=== PATIENT | female | born 1995 | race Asian ===

== ENCOUNTER 2022-03-02 22:04 | Emergency (ER) | payer BC, SELFPAY ==
[2022-03-02 23:13] VITALS: BP 137/91; PULSE 92; RESP 16; TEMP 36.2; O2SAT 98; BMI 31.5
[2022-03-03] VITALS (9 sets, daily range): BP systolic 116–135; BP diastolic 77–99; PULSE 75–92; RESP 16; O2SAT 95–98
--- NOTE | 2022-03-03 00:25 | ED.CHESTPAIN ---
HPI - Chest Pain General Chief Complaint: Chest Pain Stated Complaint: pressure in chest Time Seen by Provider: 03/03/22 00:17 History of Present Illness HPI narrative: 27-year-old young woman with history of high blood pressure presents to the emergency department with her mother. She is adopted and does not know her family medical history. After shower this evening was preparing help her dad and started to feel some pain in her upper back and left chest area spread up to her shoulders and then felt subsequently was feeling tingly in both hands. She does not describe hyperventilating. Pain was worse with a deep breath. It does seem to get worse over the course of the evening now. Pain extended from the left trapezial area down into at least her left upper arm. The numb and tingling sensation in her hands though is improving. Later describing how she has episodes of lightheadedness and dizziness occurring sometimes with movement and sometimes at rest the last month. Apparently has discussed this with Primary Care. Sounds like there was some question by clinic provider after evaluation of blood pressure, whether not might be glucose levels. Does have a history of dizziness associated with migraines per her report ADHD, oligomenorrhea, exercise-induced asthma, grief reaction.? Suicidal ideation Hypertension History of vertigo Past surgical history:? Appendectomy, D and C, cholecystectomy for acalculous cholecystitis/biliary dyskinesia, removal of a neck cyst. Related Data Home Medications Medication Instructions Recorded Confirmed hydrochlorothiazide 25 mg tablet mg 03/02/22 Allergies Allergy/AdvReac Type Severity Reaction Status Date / Time atomoxetine [From Strattera] AdvReac Verified 03/02/22 23:17 red food coloring Allergy Uncoded 03/02/22 23:18 Review of Systems Status of ROS Reports: 10 or more systems reviewed and unremarkable except as noted in History and below [facility] Social History Smoking Status: Never smoker How often do you have a drink containing alcohol: never AUDIT-C Alcohol total score: 0 Non-prescribed substance use: denies use Exam Narrative Exam Narrative: pleasant, nad. breathing easily. cn 2 - 12 intact. head atraumatic neck supple with full rom Tattoo at left upper chest. Sore to palpation in this area and into upper rhomboid/trapezius of the shoulder area. Good range of motion with both arms, skin warm and well perfused peripherally with equal pulses. subjectively a little unusual sensation in left upper arm. no evelin loss of sensation. good strength throughout. no peripheral edema. cv with mildly elevated rate, reg rhythm, no mrg. lungs are clear Const Vital Signs, click to edit/add: Vital Signs - 24 hr 03/02/22 23:13 03/03/22 01:20 03/03/22 01:40 Temperature 97.2 F L Pulse Rate [Left Pulse Oximeter] 92 80 88 Respiratory Rate 16 16 16 Blood Pressure [Right Upper Arm] 137/91 H 135/99 H 125/81 Pulse Oximetry 98 96 96 Oxygen Delivery Method Room Air Room Air 03/03/22 02:00 03/03/22 03:00 03/03/22 03:20 Temperature Pulse Rate [Left Pulse Oximeter] 88 80 92 Respiratory Rate 16 16 16 Blood Pressure [Right Upper Arm] 116/77 134/99 H 123/83 Pulse Oximetry 95 97 98 Oxygen Delivery Method Room Air Room Air Room Air 03/03/22 03:40 03/03/22 04:00 03/03/22 04:40 Temperature Pulse Rate [Left Pulse Oximeter] 81 75 79 Respiratory Rate 16 16 16 Blood Pressure [Right Upper Arm] 126/89 117/82 125/88 Pulse Oximetry 95 97 98 Oxygen Delivery Method Room Air Room Air Room Air 03/03/22 05:20 Temperature Pulse Rate [Left Pulse Oximeter] 81 Respiratory Rate 16 Blood Pressure [Right Upper Arm] 124/90 H Pulse Oximetry 96 Oxygen Delivery Method Room Air Documenting provider has reviewed patient's vital signs: yes Course Course Hospital Course: cardiac and oximetry monitoring ultimately without event. Reevaluation(s) Reevaluation #1: After fluids and ketorolac pain still present she calmly explains. Ultimately would like further medication for pain but again prefers no opiates. We settle on ketamine infusion. This apparently adds to sense of dizziness and subsequently a little nauseated. Treated with Zofran. Overall improved and requesting departure. Vital Signs Vital signs: Initial Vital Signs Temperature 97.2 F L 03/02/22 23:13 Temperature Source Temporal Artery Scan 03/02/22 23:13 Pulse Rate 92 03/02/22 23:13 Respiratory Rate 16 03/02/22 23:13 Blood Pressure 137/91 H 03/02/22 23:13 Blood Pressure Mean 106 03/02/22 23:13 Blood Pressure Position Sitting 03/02/22 23:13 Pulse Oximetry 98 03/02/22 23:13 Vital Signs Temperature 97.2 F L 03/02/22 23:13 Pulse Rate 92 03/02/22 23:13 Respiratory Rate 16 03/02/22 23:13 Blood Pressure 137/91 H 03/02/22 23:13 Pulse Oximetry 98 03/02/22 23:13 Temperature 97.2 F L 03/02/22 23:13 Pulse Rate 81 03/03/22 05:20 Respiratory Rate 16 03/03/22 05:20 Blood Pressure 124/90 H 03/03/22 05:20 Pulse Oximetry 96 03/03/22 05:20 Oxygen Delivery Method 03/03/22 05:20 MDM - Chest Pain MDM Narrative Medical decision making narrative: personally reviewed chest xray to be wnl. still with pain, unusual presentation, pleuritic pain and elev d-dimer sent to iv con ct chest. reviewed these images also radiology overread notes nothing but fatty liver. labs with sl elev wbc and mild elev d-dimer. discomfort is somewhat reproducible likely chest wall pain, costochondritis? with muscle tension/spasm. Medical Records Data Medical records narrative: not available to me Lab Data Attestation: I reviewed the patient's lab results. Labs: Lab Results 03/03/22 03/03/22 03/03/22 Range/Units 00:49 00:49 00:49 WBC 11.76 H (4.50-11.00) K/uL RBC 4.56 (4.00-5.20) m/uL Hgb 14.1 (12.0-16.0) gm/dL Hct 40.2 (33.0-51.0) % MCV 88 (80-100) fL MCH 31 (26-34) pg MCHC 35 (32-36) gm/dL RDW Coeff of Meka 11.2 L (11.5-15.5) % Plt Count 365 (140-440) K/uL Neut % (Auto) 59.9 (42.0-72.0) % Lymph % (Auto) 30.5 (20-44) % Sanborn % (Auto) 6.7 (0.0-11.0) % Eos % (Auto) 1.6 (0.0-7.0) % Baso % (Auto) 0.4 (0.0-3.0) % Neut # (Auto) 7.00 (1.7-7.0) K/uL Lymph # (Auto) 3.60 H (0.90-2.90) K/uL Sanborn # (Auto) 0.80 (0.00-0.90) K/UL Eos # (Auto) 0.20 (0.00-0.50) K/uL Baso # (Auto) 0.00 (0.00-0.30) K/uL Abs Immat Gran (auto) 0.10 (0.00-0.30) K/uL D-Dimer Quant (PE/DVT) 0.89 H (0.00-0.50) ug/ml Sodium 139 (135-149) mmol/L Potassium 3.7 (3.6-5.1) mmol/L Chloride 103 (96-114) mmol/L Carbon Dioxide 26 (20-32) mmol/L BUN 14 (5-24) mg/dL Creatinine 0.5 (0.5-1.5) mg/dL Estimated Creat Clear 131.30 Estimated GFR 130 ml/min Glucose 106 (60-115) mg/dL Calcium 9.4 (8.4-10.6) mg/dL Troponin I < 0.01 L (0.01-0.04) ng/mL C-Reactive Protein < 0.5 L (0.5-1.0) mg/dL NT-Pro-B Natriuret Pep 24 (0-125) PG/mL POC Troponin I (0.01-0.04) ng/ml 03/03/22 Range/Units 00:49 WBC (4.50-11.00) K/uL RBC (4.00-5.20) m/uL Hgb (12.0-16.0) gm/dL Hct (33.0-51.0) % MCV (80-100) fL MCH (26-34) pg MCHC (32-36) gm/dL RDW Coeff of Meka (11.5-15.5) % Plt Count (140-440) K/uL Neut % (Auto) (42.0-72.0) % Lymph % (Auto) (20-44) % Sanborn % (Auto) (0.0-11.0) % Eos % (Auto) (0.0-7.0) % Baso % (Auto) (0.0-3.0) % Neut # (Auto) (1.7-7.0) K/uL Lymph # (Auto) (0.90-2.90) K/uL Sanborn # (Auto) (0.00-0.90) K/UL Eos # (Auto) (0.00-0.50) K/uL Baso # (Auto) (0.00-0.30) K/uL Abs Immat Gran (auto) (0.00-0.30) K/uL D-Dimer Quant (PE/DVT) (0.00-0.50) ug/ml Sodium (135-149) mmol/L Potassium (3.6-5.1) mmol/L Chloride (96-114) mmol/L Carbon Dioxide (20-32) mmol/L BUN (5-24) mg/dL Creatinine (0.5-1.5) mg/dL Estimated Creat Clear Estimated GFR ml/min Glucose (60-115) mg/dL Calcium (8.4-10.6) mg/dL Troponin I (0.01-0.04) ng/mL C-Reactive Protein (0.5-1.0) mg/dL NT-Pro-B Natriuret Pep (0-125) PG/mL POC Troponin I 0.00 L (0.01-0.04) ng/ml ECG Data Attestation: I personally reviewed and interpreted this ECG as follows: (Normal sinus rate of 89. No ischemic changes apparent) Discharge Plan Discharge Clinical Impression: Chest wall pain, Radiculopathy affecting upper extremity Patient Disposition: Home w/ Parent or Adult Condition: Improved Additional Instructions: Consider doing neck pull-downs a few times daily as demonstrated. See handout for upper back exercises. With a little food, would consider taking naproxen up to 500 mg twice a day over the next 5 days. Schedule follow-up with your primary care provider to consider further evaluation. Return for uncontrolled pain, new and focal weakness, worsening numbness absent of pain. Prescriptions: No Action hydrochlorothiazide 25 mg tablet Follow Up/Referrals: Luis Presley MD [Staff Physician] - Stand Alone Forms: [facility] Info Instructions
--- NOTE | 2022-03-03 00:27 | CRLHL7_ITS ---
For Patients: As a result of the Century Cures Act, medical imaging exams and procedure reports are released immediately into your electronic medical record. You may view this report before your referring provider. If you have questions, please contact your health care provider. Indication: Left upper chest pain Technique: Chest 1 view Comparison: November 27, 2010 Findings/Impression: Cardiovascular and mediastinum: Heart size and vasculature are normal in caliber and appearance. Mediastinum is within normal limits. Lungs and pleural space: Lungs are clear. No sign of infiltrate or mass. No sign of pleural effusion. No pneumothorax. Bones and soft tissues: No significant findings. Dictated by Kathy Rudolph MD @ 03/03/2022 12:52:10 AM (Electronically Signed)
[2022-03-03 00:59] LABS: Basophils Percent Auto 0.4 % (0.0-3.0); Eosinophils Percent Auto 1.6 % (0.0-7.0); Hematocrit 40.2 % (33.0-51.0); Hemoglobin* 14.1 gm/dL (12.0-16.0); Lymphocytes Percent Auto 30.5 % (20-44); Mean Corpuscular HGB Conc 35 gm/dL (32-36); Mean Corpuscular Hemoglobin 31 pg (26-34); Mean Corpuscular Volume 88 fL (80-100); Monocytes Percent Auto 6.7 % (0.0-11.0); Neutrophils Percent Auto 59.9 % (42.0-72.0); Platelet Count* 365 K/uL (140-440); RDW Coefficient of Variation % 11.2 % (11.5-15.5); Red Blood Count 4.56 m/uL (4.00-5.20); White Blood Count* 11.76 K/uL (4.50-11.00)
[2022-03-03 01:02] LABS: Slide Review Reflex No
[2022-03-03] MEDS: KETOROLAC 30 MG/ML inj IVP (01:04)
[2022-03-03] MEDS: 0.9 % SODIUM CHLORIDE 1000 ml 1,000 ML IV (01:04)
[2022-03-03 01:15] LABS: Chloride* 103 mmol/L (96-114); Potassium* 3.7 mmol/L (3.6-5.1); Sodium* 139 mmol/L (135-149)
[2022-03-03 01:18] LABS: Creatinine* 0.5 mg/dL (0.5-1.5); Estimated Glomerular Filt Rate 130 ml/min
[2022-03-03 01:19] LABS: Blood Urea Nitrogen* 14 mg/dL (5-24); Calcium* 9.4 mg/dL (8.4-10.6); Carbon Dioxide* 26 mmol/L (20-32); D Dimer Quantitative* 0.89 ug/ml (0.00-0.50); Glucose* 106 mg/dL (60-115)
[2022-03-03 01:25] LABS: C Reactive Protein* < 0.5 mg/dL (0.5-1.0)
[2022-03-03 01:37] LABS: NT Pro B Type NatriureticPept* 24 PG/mL (0-125)
[2022-03-03 01:41] LABS: Troponin I* < 0.01 ng/mL (0.01-0.04)
--- NOTE | 2022-03-03 02:10 | CRLHL7_ITS ---
For Patients: As a result of the Century Cures Act, medical imaging exams and procedure reports are released immediately into your electronic medical record. You may view this report before your referring provider. If you have questions, please contact your health care provider. INDICATION: Left upper pleuritic chest pain. Elevated D-dimer. COMPARISON: Portable chest from earlier today. TECHNIQUE: CT examination of the chest was performed with the uneventful intravenous administration of 95 cc of Isovue 370 while 1.5 mm thick axial sections were obtained from above the apices of the lungs through the mid renal level. Please note that all CT scans at this facility use dose modulation, iterative reconstruction, and/or weight-based dosing when appropriate to reduce radiation dose to as low as reasonably achievable. FINDINGS: : There is no sign of pulmonary embolism, with normal enhancement and branching of the pulmonary arteries. The lungs are clear with no sign of significant infiltrate or mass. There is no sign of mediastinal or hilar mass or adenopathy. The heart is normal in appearance for the patient`s age. There is age appropriate appearance of the thoracic aorta and ascending great vessels. There is no sign of supraclavicular or axillary mass or adenopathy. The visualized superior liver is low in density representing fatty infiltration. The rest of the liver is normal in appearance. The visualized superior spleen, pancreas, kidneys, and adrenals are normal in appearance. The osseous structures are normal in appearance for the patient`s age. IMPRESSION: No sign of pulmonary embolism. No sign of any abnormality in the chest itself. Fatty infiltration of the liver. Please note that all CT scans at this facility use dose modulation, iterative reconstruction, and/or weight-based dosing when appropriate to reduce radiation dose to as low as reasonably achievable. Dictated by Richard Seymour MD @ 03/03/2022 4:01:45 AM (Electronically Signed)
[2022-03-03] MEDS: KETAMINE HCL 20 MG in 0.9 % SODIUM CHLORIDE 100 ml 100 ML 300.6 MG IVPB (04:35)
[2022-03-03] MEDS: ONDANSETRON 2 MG/ML inj 4 MG IVP (05:10)
--- NOTE | 2022-03-03 05:55 | ED.NURSE ---
medical technical writer did witness waste of prepared ketamine 60ml
== END 2022-03-03 05:55 | disposition home or self-care (01) ==
PROVIDERS: Emergency Provider Family Medicine; PCP Family Medicine
DX: R07.89 Other chest pain (principal)
CPT/HCPCS: 36415; 71045; 71260; 80048; 83880; 84484; 85025; 85379; 86140; 93005; 96365; 96375; 99284; 99285; J1885; J2405; J3490; J7030; Q9967

== ENCOUNTER 2023-03-04 11:10 | Emergency (ER) | payer BC, SELFPAY ==
[2023-03-04 11:14] VITALS: BP 147/111; PULSE 113; RESP 18; TEMP 36.5; O2SAT 98; BMI 30.7
--- NOTE | 2023-03-04 11:38 | ED.GENADULT ---
HPI - General Adult General Time Seen by Provider: 11:38 Date Seen: 03/04/23 Chief complaint: Abdominal Pain Stated complaint: pelvic pain Time Seen by Provider: 03/04/23 11:18 History of Present Illness HPI narrative: This is a pleasant 28-year-old female brought to the ER today by her parents for evaluation of pelvic pain and cramping. She has a previous history of of appendectomy, cholecystectomy, fatty liver diagnosed on CT scan last year (but no other liver disease) and abnormal Pap smears. Three days ago she underwent a colposcopy with cervical biopsies done by her retail leasing agent [facility]. She had been doing well. Minimal pelvic cramping after that and knows vaginal bleeding or vaginal discharge. Since last night she has developed fairly severe midline pelvic cramping. It is fairly intense. It is not alleviated by [id number] Tylenol or ibuprofen. She is still not have any vaginal bleeding or spotting. No fever. The pain has been so severe that it made her nauseous. She has had a couple of episodes of nonbloody emesis. She does have some watery diarrhea. Urination normal. She does not think she is . No fever. Through [facility] everywhere I can see that she had a LEEP procedure and cervical biopsy by lanre Anderson a manager mba on 03/01. She had 1 cervical biopsy at the 6 o'clock position on the cervix. Pathology results pending. Related Data Home Medications Medication Instructions Recorded Confirmed hydrochlorothiazide 25 mg tablet mg 03/02/22 Previous Rx's Medication Instructions Recorded cephalexin 500 mg capsule 500 mg PO Q12H #10 caps 03/04/23 hydrocodone 5 mg-acetaminophen 325 1 tab PO Q4-6H PRN pain #10 tabs 03/04/23 mg tablet Allergies Allergy/AdvReac Type Severity Reaction Status Date / Time atomoxetine [From Strattera] AdvReac Verified 11/25/22 14:58 red food coloring Allergy Uncoded 03/02/22 23:18 Review of Systems Narrative: Negative PFSH PFSH Social History Smoking Status: Never smoker Do you use any of these nicotine containing products: None Second hand tobacco smoke exposure: No How often do you have a drink containing alcohol: never AUDIT-C Alcohol total score: 0 Non-prescribed substance use: denies use Exam Narrative: Exam Narrative: Constitutional: Appears well-developed and well-nourished. Alert. Conversant. Non toxic. HENT: Head: Atraumatic. Nose: Nose normal. Mouth/Throat: Oral mucosa is clear and moist. no trismus. Pharynx normal. Tonsils symmetric. No tonsillar enlargement, erythema, or exudate. Eyes: Conjunctivae normal. EOM normal. Pupils equal, round, and reactive to light. No scleral icterus. Neck: Normal range of motion. Neck supple. No tracheal deviation present. Cardiovascular: Normal rate, regular rhythm. No gallop. No friction rub. No murmur heard. Symmetric radial artery pulses Pulmonary/Chest: Effort normal. No stridor. No respiratory distress. No wheezes. No rales. No rhonchi . No tenderness. Abdominal: Soft. Bowel sounds normal. No distension. No mass. Suprapubic, left lower quadrant, right lower quadrant tenderness. No CVA tenderness. No upper abdominal tenderness. No rebound. No guarding. Pelvic: Performed with female explosive specialist. Normal external anatomy. Speculum exam was performed. There is a small amount of purulent drainage from the cervix. No active bleeding. No definite lesions or cervical lacerations. We did obtain wet prep and GC/CT swabs. Bimanual exam deferred. Musculoskeletal: RUE: Normal range of motion. No tenderness. No deformity LUE: Normal range of motion. No tenderness. No deformity RLE: Normal range of motion. No edema. No tenderness. No deformity LLE: Normal range of motion. No edema. No tenderness. No deformity Lymph: No cervical adenopathy. Neurological: Alert and oriented to person, place, and time. Normal strength. CN II-VII intact. No sensory deficit. GCS eye subscore is 4. GCS verbal subscore is 5. GCS motor subscore is 6. Normal coordination Skin: Skin is warm and dry. No rash noted. No pallor. Normal capillary refill. Psychiatric: Normal mood. Normal affect. Const: Vital Signs, click to edit/add: Vital Signs - 24 hr 03/04/23 11:14 Temperature 97.7 F Pulse Rate [Right Pulse Oximeter] 113 H Respiratory Rate 18 Blood Pressure [Ri ght Upper Arm] 147/111 H Pulse Oximetry 98 Oxygen Delivery Me thod Room Air Course Course Hospital Course: She politely requests that we avoid opiates. Will try Toradol for pain. Vital Signs Vital signs: Initial Vital Signs Temperature 97.7 F 03/04/23 11:14 Temperature Source Temporal Artery Scan 03/04/23 11:14 Pulse Rate 113 H 03/04/23 11:14 Respiratory Rate 18 03/04/23 11:14 Blood Pressure 147/111 H 03/04/23 11:14 Blood Pressure Mean 123 H 03/04/23 11:14 Blood Pressure Position Sitting 03/04/23 11:14 Pulse Oximetry 98 03/04/23 11:14 Oxygen Delivery Method Room Air 03/04/23 11:14 Vital Signs Temperature 97.7 F 03/04/23 11:14 Pulse Rate 113 H 03/04/23 11:14 Respiratory Rate 18 03/04/23 11:14 Blood Pressure 147/111 H 03/04/23 11:14 Pulse Oximetry 98 03/04/23 11:14 Oxygen Delivery Method Room Air 03/04/23 11:14 Temperature 97.7 F 03/04/23 11:14 Pulse Rate 113 H 03/04/23 11:14 Respiratory Rate 18 03/04/23 11:14 Blood Pressure 147/111 H 03/04/23 11:14 Pulse Oximetry 98 03/04/23 11:14 Oxygen Delivery Method Room Air 03/04/23 11:14 Medical Decision Making MDM Narrative Medical decision making narrative: Presented to the Emergency Department with bilateral pelvic and suprapubic pain. She is 3 days status post colposcopy and cervical biopsy done through the [facility] in [place] by Dr. Martinez. She is not having any vaginal bleeding or vaginal discharge. No fever to raise concern for infection. She is already status post appendectomy and cholecystectomy. She is not . The differential diagnosis of her pelvic pain includes : Ovarian cyst or torsion, uterine abnormality, complication, kidney stone, Enteritis/Colitis, amongst many other etiologies. White cell count is normal. test is negative. Urinalysis shows pyuria and hematuria which could indicate UTI but also squamous epithelial cells suggesting a contaminated specimen. Discussed the ambiguous findings with the patient. We decided to go ahead and treat her empirically with a course of cephalexin for possible UTI. However, No other dysuria or clear symptoms of UTI. No flank pain to suggest pyelonephritis or associated kidney stone. Pelvic ultrasound confirms structurally normal uterus and ovaries without any evidence for torsion or free fluid. Pelvic exam showed a small amount of purulence at the cervix which is probably related to healing from her procedure. We will obtain swabs for cervicitis as well. Wet prep is negative. PCR tests are currently pending. Laboratory testing does not reveal a definitive cause for the patient's pain. The exact etiology of the pelvic pain is not clear at this time. No life threatening cause or need for emergent surgery or hospital admission is detected today. I made consultation with the on-call provider for the [facility], Dr. Vazquez. We were able to arrange a follow-up appointment for this patient on Monday morning, approximately 40 hours from now. The patient was advised that if symptoms worsen or any concerning symptoms develop return to the ED is indicated. The patient also understands that if they worsen, they should return to the ER right away. I discussed the uncertainty about the diagnosis and answered the patient's questions. Abdominal pain return precautions discussed. Lab Data Labs: Lab Results 03/04/23 03/04/23 Range/Units 11:59 15:30 WBC 9.56 (4.50-11.00) K/uL RBC 4.67 (4.00-5.20) m/uL Hgb 14.3 (12.0-16.0) gm/dL Hct 41.2 (33.0-51.0) % MCV 88 (80-100) fL MCH 31 (26-34) pg MCHC 35 (32-36) gm/dL RDW Coeff of Meka 11.3 L (11.5-15.5) % Plt Count 354 (140-440) K/uL Neut % (Auto) 62.2 (42.0-72.0) % Lymph % (Auto) 28.9 (20-44) % Alexander % (Auto) 6.5 (0.0-11.0) % Eos % (Auto) 1.5 (0.0-7.0) % Baso % (Auto) 0.6 (0.0-3.0) % Neut # (Auto) 5.95 (1.7-7.0) K/uL Lymph # (Auto) 2.76 (0.90-2.90) K/uL Alexander # (Auto) 0.60 (0.00-0.90) K/UL Eos # (Auto) 0.14 (0.00-0.50) K/uL Baso # (Auto) 0.06 (0.00-0.30) K/uL Abs Immat Gran (auto) 0.03 (0.00-0.30) K/uL Imm/Tot Granulo (auto) 0.3 % Sodium 137 (135-149) mmol/L Potassium 3.3 L (3.6-5.1) mmol/L Chloride 101 (96-114) mmol/L Carbon Dioxide 25 (20-32) mmol/L Anion Gap 11 (7-15) mEq/L BUN 10 (5-24) mg/dL Creatinine 0.6 (0.5-1.5) mg/dL Estimated Creat Clear 108.43 Estimated GFR 124 ml/min Glucose 109 (60-115) mg/dL Calcium 8.7 (8.4-10.6) mg/dL HCG, Qual Negative (Negative) Urine Color Yellow (Yellow) Urine Appearance Cloudy A (Clear) Urine pH 7.0 (5.0-8.5) Ur Specific Addison 1.020 (1.000-1.030) Urine Protein Trace A (Negative) Urine Glucose (UA) Negative (Negative) Urine Ketones Negative (Negative) Urine Blood Trace-intact A (Negative) Urine Nitrite Negative (Negative) Urine Bilirubin Negative (Negative) Urine Urobilinogen 0.2 (0.2-1.0) Ur Leukocyte Esterase 2+ A (Negative) Urine RBC 10-25 A (0-2) Urine WBC 10-25 A (0-5) Ur Squamous Epith Cells Moderate A (None-Few) Urine Bacteria Many A (None) Vaginal Trichomonas No Trichomonas Seen (None Seen) Vaginal Yeast No Yeast Seen (None Seen) Vaginal Clue Cells No Clue Cells Seen (None Seen) Imaging Data Pelvic Ultrasound: Attestation: I have reviewed the pertinent imaging results. Radiologist's impression: FINDINGS: Uterus: 7.0 x 2.9 x 3.6 cm. Normal echotexture of the myometrium. No masses. Endometrium: Transvaginal imaging was performed to better evaluate the endometrium. Endometrial thickness measures 5 mm. No sign of endometrial mass or fluid. Right ovary 2.8 x 2.6 x 2.4 centimeters. Left ovary 3.2 x 1.5 x 2.5 centimeters. No ovarian or adnexal masses. Normal arterial and venous blood flow is demonstrated in both ovaries. Cul-de-sac: No significant free fluid. IMPRESSION: Unremarkable pelvic ultrasound for age. Discharge Plan Discharge Clinical Impression: UTI (urinary tract infection), Pelvic pain Patient Disposition: Home, Self-Care Condition: Stable Instructions: Urinary Tract Infection in Women (DC), Pelvic Pain (ED) Additional Instructions: He has an appointment to follow up in the [facility] for recheck at 7:25 a.m. on Tuesday 03/06. Prescriptions: New hydrocodone-acetaminophen 5-325 mg tablet 1 tab PO Q4-6H PRN (Reason: pain) Qty: 10 0RF cephalexin 500 mg capsule 500 mg PO Q12H Qty: 10 0RF No Action hydrochlorothiazide 25 mg tablet Follow Up/Referrals: Luzmaria Martinez DO [Primary Care Provider] - Stand Alone Forms: [facility] Info Instructions
--- NOTE | 2023-03-04 11:41 | CRLHL7_ITS ---
For Patients: As a result of the Century Cures Act, medical imaging exams and procedure reports are released immediately into your electronic medical record. You may view this report before your referring provider. If you have questions, please contact your health care provider. INDICATION: Pelvic pain. TECHNIQUE: Ultrasound pelvis transabdominal and transvaginal for better assessment or to better visualize the endometrium. Real-time sonographic images with spectral and color Doppler imaging of the ovaries were obtained. COMPARISON: None. FINDINGS: Uterus: 7.0 x 2.9 x 3.6 cm. Normal echotexture of the myometrium. No masses. Endometrium: Transvaginal imaging was performed to better evaluate the endometrium. Endometrial thickness measures 5 mm. No sign of endometrial mass or fluid. Right ovary 2.8 x 2.6 x 2.4 centimeters. Left ovary 3.2 x 1.5 x 2.5 centimeters. No ovarian or adnexal masses. Normal arterial and venous blood flow is demonstrated in both ovaries. Cul-de-sac: No significant free fluid. IMPRESSION: Unremarkable pelvic ultrasound for age. Dictated by Ricky Tinajero MD @ 03/04/2023 1:51:07 PM (Electronically Signed)
[2023-03-04 12:06] LABS: Basophils Absolute Auto 0.06 K/uL (0.00-0.30); Basophils Percent Auto 0.6 % (0.0-3.0); Eosinophils Absolute Auto 0.14 K/uL (0.00-0.50); Eosinophils Percent Auto 1.5 % (0.0-7.0); Hematocrit 41.2 % (33.0-51.0); Hemoglobin* 14.3 gm/dL (12.0-16.0); Immature Granulocytes Abs Auto 0.03 K/uL (0.00-0.30); Immature Granulocytes Pct Auto 0.3 %; Lymphocytes Absolute Auto 2.76 K/uL (0.90-2.90); Lymphocytes Percent Auto 28.9 % (20-44); Mean Corpuscular HGB Conc 35 gm/dL (32-36); Mean Corpuscular Hemoglobin 31 pg (26-34); Mean Corpuscular Volume 88 fL (80-100); Monocytes Percent Auto 6.5 % (0.0-11.0); Neutrophils Absolute Auto 5.95 K/uL (1.7-7.0); Neutrophils Percent Auto 62.2 % (42.0-72.0); Platelet Count* 354 K/uL (140-440); RDW Coefficient of Variation % 11.3 % (11.5-15.5); Red Blood Count 4.67 m/uL (4.00-5.20); White Blood Count* 9.56 K/uL (4.50-11.00)
[2023-03-04 12:11] LABS: Slide Review Reflex No
[2023-03-04] MEDS: KETOROLAC 15 MG/ML inj IVP (12:12)
[2023-03-04] MEDS: 0.9 % SODIUM CHLORIDE 1000 ml 1,000 ML IV (12:13)
[2023-03-04] MEDS: ONDANSETRON 2 MG/ML inj 4 MG IVP (12:13)
[2023-03-04 12:20] LABS: Appearance Urine Cloudy (Clear); Bilirubin Urine Negative (Negative); Blood Urine Trace-intact (Negative); Color Urine Yellow (Yellow); Glucose Urine Negative (Negative); Ketones Urine Negative (Negative); Leukocyte Esterase Urine 2+ (Negative); Nitrite Urine Negative (Negative); Protein Urine Trace (Negative); Urobilinogen Urine 0.2 (0.2-1.0)
[2023-03-04 12:28] LABS: Chloride* 101 mmol/L (96-114)
[2023-03-04 12:29] LABS: Potassium* 3.3 mmol/L (3.6-5.1); Sodium* 137 mmol/L (135-149)
[2023-03-04 12:30] LABS: Bacteria Urine Many; Squamous Epithelial Cell Urine Moderate (None-Few)
[2023-03-04 12:31] LABS: Anion Gap 11 mEq/L (7-15); Carbon Dioxide* 25 mmol/L (20-32); Creatinine* 0.6 mg/dL (0.5-1.5); Est. Creatinine Clearance* 108.43; Estimated Glomerular Filt Rate 124 ml/min
[2023-03-04 12:32] LABS: Blood Urea Nitrogen* 10 mg/dL (5-24); Calcium* 8.7 mg/dL (8.4-10.6); Glucose* 109 mg/dL (60-115); HCG Qualitative Serum* Negative (Negative)
[2023-03-04] MEDS: HYDROCODONE-ACETAMIN 5-325 MG 1 TAB PO (14:51)
[2023-03-04 16:02] LABS: Clue Cells No Clue Cells Seen (None Seen); Trichomonas No Trichomonas Seen (None Seen); Yeast No Yeast Seen (None Seen)
[2023-03-04 17:20] LABS: Chlamydia DNA Amplified* NOT DETECTED (No Detected); GC DNA Amplified* NOT DETECTED (No Detected)
== END 2023-03-04 16:15 | disposition home or self-care (01) ==
PROVIDERS: Emergency Provider Emergency Medicine; PCP Family Medicine
DX: N39.0 Urinary tract infection, site not specified (principal); R10.2 Pelvic and perineal pain
CPT/HCPCS: 36415; 76830; 80048; 81001; 84703; 85025; 87086; 87210; 87491; 87591; 93976; 96361; 96374; 96375; 99283; 99284; A9270; J1885; J2405; J7030

== ENCOUNTER 2023-03-08 16:32 | Outpatient (CLI) | payer BC, SELFPAY ==
--- NOTE | 2023-03-08 16:30 | CRLHL7_ITS ---
For Patients: As a result of the Century Cures Act, medical imaging exams and procedure reports are released immediately into your electronic medical record. You may view this report before your referring provider. If you have questions, please contact your health care provider. INDICATION: Severe abdominal pain with vomiting and diarrhea. COMPARISON: Ultrasound of the pelvis from 03/04/2023. Report of the CT pulmonary angiogram from 03/03/2022. TECHNIQUE: CT examination of the abdomen and pelvis was performed with the uneventful intravenous administration of 82 cc of Isovue 370 while 3 mm thick axial sections were obtained from the lung bases through the pubic symphysis. Oral contrast was not administered. Please note that all CT scans at this facility use dose modulation, iterative reconstruction, and/or weight-based dosing when appropriate to reduce radiation dose to as low as reasonably achievable. FINDINGS: In the abdomen, the liver is low in density, representing fatty infiltration. There is no sign of mass. The spleen, pancreas and adrenals are normal in appearance. The kidneys are normal in appearance. Clips are seen in the gall bladder fossa from cholecystectomy. There is no sign of biliary ductal dilatation. The abdominal aorta is normal in caliber with no sign of dilatation. There is no sign of retroperitoneal mass or adenopathy. The stomach, loops of small bowel, and colon in the abdomen are normal in appearance. In the pelvis, the appendix is nonvisualized, but there is no sign of an inflammatory process in the area of the appendix. There are surgical clips in the area of the appendix consistent with appendectomy. The loops of small bowel, colon, and rectum in the pelvis are normal in appearance. The uterus and adnexal regions are normal in appearance. The urinary bladder is normal in appearance. There is no sign of pelvic or inguinal mass or adenopathy. There is no sign of free air or free fluid in the abdomen or pelvis. The lung bases are clear. The osseous structures are normal in appearance for the patient`s age. IMPRESSION: Nothing seen to correlate with the history of abdominal pain, vomiting, or diarrhea. No sign of distension of the bowel and no sign of any inflammatory process involving the bowel. Normal appearance of the colon with no sign of excessive fluid to correlate with the history of diarrhea. No sign of distention of the stomach. Normal appearance of the pancreas with no sign of pancreatitis. CT of the abdomen shows fatty infiltration of the normal-sized liver. Status post cholecystectomy with no sign of biliary ductal dilatation. Normal CT of the pelvis with contrast. Please note that all CT scans at this facility use dose modulation, iterative reconstruction, and/or weight-based dosing when appropriate to reduce radiation dose to as low as reasonably achievable. Dictated by Richard Seymour MD @ 03/08/2023 6:15:05 PM (Electronically Signed)
== END 2023-03-08 16:33 | disposition home or self-care (01) ==
LOC: CT 16:33
PROVIDERS: PCP Family Medicine; Visit Provider Family Medicine
DX: R10.9 Unspecified abdominal pain (principal); K76.0 Fatty (change of) liver, not elsewhere classified; R11.10 Vomiting, unspecified; R19.7 Diarrhea, unspecified
CPT/HCPCS: 74177; Q9967